=== PATIENT | female | born 1985 | race Two or more races ===

== ENCOUNTER 2023-06-15 09:55 | Emergency (ER) | payer SELFPAY ==
[~2023-06-15] VITALS: Ht 175.3 cm; Wt 95.3 kg
[2023-06-15 10:03] VITALS: TEMP 99.9
[2023-06-15 10:55] LABS: CALCIUM, SERUM 8.2 mg/dL (8.5-10.1); CARBON DIOXIDE 27 mmol/L (21-32); CHLORIDE 99 mmol/L (98-107); CREATININE 0.8 mg/dL (0.6-1.3); GLUCOSE 99 mg/dL (74-106); POTASSIUM 2.9 mmol/L (3.5-5.1); SODIUM SERUM 135 mmol/L (136-145); UREA NITROGEN, BLOOD 6 mg/dL (7-18)
[2023-06-15 10:58] LABS: BASOPHILS % (AUTO) 0.3 % (0.0-2.0); EOSINOPHILS % (AUTO) 0.4 % (0.0-6.0); HEMATOCRIT 37 % (33-45); HEMOGLOBIN 12.3 g/dL (11.5-14.8); LYMPHOCYTES # (AUTO) 0.6 K/uL (0.8-4.8); LYMPHOCYTES % (AUTO) 9.5 % (20.0-44.0); MEAN CORPUSCULAR HEMOGLOBIN 28 PG (26.0-33.0); MEAN CORPUSCULAR HGB CONC 34 g/dl (31.0-36.0); MEAN CORPUSCULAR VOLUME 82 fL (82-100); MONOCYTES # (AUTO) 0.5 K/uL (0.1-1.30); MONOCYTES % (AUTO) 7.6 % (2.0-12.0); NEUTROPHILS # (AUTO) 5.3 K/uL (1.8-8.9); NEUTROPHILS % (AUTO) 82.2 % (43.0-81.0); PLATELET COUNT (AUTO) 321 K/uL (150-450); RED BLOOD CELL COUNT(AUTO) 4.47 MIL/uL (4.0-5.2); RED CELL DISTRIBUTION WIDTH 12.8 % (11.5-15.0); WHITE BLOOD COUNT (AUTO) 6.5 K/uL (4.3-11.0)
[2023-06-15] MEDS ORDERED: KETOROLAC TROMETHAMINE 15 MG/ML VIAL ONE (10:58)
[2023-06-15] MEDS: IV NS 0.9% 1,000 ML BAG IV ONE (11:00)
[2023-06-15] MEDS: KETOROLAC TROMETHAMINE 15 MG/ML VIAL IV ONE (11:00)
[2023-06-15] MEDS ORDERED: BENZ-13 PO (11:32)
[2023-06-15] MEDS ORDERED: AMOX500T2 PO (11:32)
[2023-06-15] MEDS ORDERED: IBUP-1955 PO (11:32)
[2023-06-15] MEDS ORDERED: IOHEXOL-350 100 ML VIAL IV ONE (11:34)
[2023-06-15] MEDS ORDERED: IV NS 0.9% 250 ML IV ONE (11:34)
[2023-06-15] MEDS ORDERED: POTASSIUM CHLORIDE 20 MEQ TAB.PRT.SR PO ONE (12:41)
[2023-06-15] MEDS: POTASSIUM CHLORIDE 20 MEQ TAB.PRT.SR PO ONE (12:44)
[2023-06-15 13:10] VITALS: BP 115/85; O2SAT 100
[2023-06-18] MEDS ORDERED: IBUP-1955 PO (07:52)
[2023-06-18] MEDS ORDERED: HYDR25TA4 PO (07:52)
[2023-06-20] MEDS ORDERED: LEVO750T46 PO (10:25)
[2023-06-20] MEDS ORDERED: DOXY-326 PO (10:25)
== END 2023-06-15 13:05 | disposition home or self-care (01) ==
LOC: ER 10:09
DX: J18.1 Lobar pneumonia, unspecified organism (principal); E04.1 Nontoxic single thyroid nodule; R00.0 Tachycardia, unspecified; R05.9 Cough, unspecified; I10 Essential (primary) hypertension; Z20.822 Contact with and (suspected) exposure to COVID-19
CPT/HCPCS: 99285; 96374; 71275; 71045; 96361; 87426; 93005 ×2; 87804 ×2; 85025; 80048; 85378; 36415; 87420; 84484; J7030; J7050; A4223; Q9967; J1885

== ENCOUNTER 2023-06-17 09:16 | Emergency (ER) | payer SELFPAY ==
[~2023-06-17] VITALS: Ht 175.3 cm; Wt 95.3 kg
[~2023-06-17 09:16] MED LIST: AMOX500T2 PO; BENZ-13 PO; IBUP-1955 PO
[2023-06-17 09:24] VITALS: TEMP 98.7
[2023-06-17 10:31] VITALS: BP 145/98; O2SAT 96
[2023-06-18] MEDS ORDERED: HYDR25TA4 PO (07:52)
[2023-06-18] MEDS ORDERED: IBUP-1955 PO (07:52)
[2023-06-20] MEDS ORDERED: LEVO750T46 PO (10:25)
[2023-06-20] MEDS ORDERED: DOXY-326 PO (10:25)
== END 2023-06-17 10:36 | disposition home or self-care (01) ==
LOC: ER 09:18
DX: J18.1 Lobar pneumonia, unspecified organism (principal); I10 Essential (primary) hypertension
CPT/HCPCS: 71045-TC

== ENCOUNTER 2023-06-26 09:46 | Emergency (ER) | payer OTHER ==
[~2023-06-26] VITALS: Ht 170.2 cm; Wt 93.0 kg
[~2023-06-26 09:46] MED LIST changes: -AMOX500T2 PO; -BENZ-13 PO; +DOXY-326 PO; +HYDR25TA4 PO; +LEVO750T46 PO
[2023-06-26 12:49] VITALS: BP 148/94; TEMP 98.2; O2SAT 98
== END 2023-06-26 12:49 | disposition home or self-care (01) ==
LOC: ER 09:50
DX: R05.9 Cough, unspecified (principal); I10 Essential (primary) hypertension
CPT/HCPCS: 71250-TC